=== PATIENT | male | born 1970 | race Caucasian/White ===

== ENCOUNTER 2019-03-16 16:33 | Inpatient (IN) | payer OTHER ==
[~2019-03-16] VITALS: Ht 167.6 cm; Wt 80.0 kg
[2019-03-16 16:43] VITALS: Ht 167.6 cm; Wt 80.0 kg
[2019-03-16 17:31] LABS: BASOPHIL % 0.3 % (0-2); PLATELET COUNT 230 x10^3mcL (130-400); RED CELL DISTRIBUTION WIDTH 12.8 % (11.5-14.5)
[2019-03-16 17:38] LABS: CALCIUM 8.3 mg/dL (8.5-10.1); CARBON DIOXIDE 26.7 mmol/L (21-32); CHLORIDE SERUM 103 mmol/L (98-107); CREATININE SERUM 0.7 mg/dL (0.7-1.3); GFR1 > 60 mL/min; GLUCOSE SERUM 275 mg/dL (74-106); SODIUM SERUM 138 mmol/L (136-145)
[2019-03-16 17:56] LABS: ALBUMIN 3.7 g/dL (3.4-5.0); ALKALINE PHOSPHATASE 87 U/L (46-116); ALT/SGPT 69 U/L (16-63); AST/SGOT 35 U/L (15-37); BILIRUBIN TOTAL 0.5 mg/dL (0.20-1.00); TOTAL PROTEIN, SERUM 7.2 g/dL (6.4-8.2)
[2019-03-16 20:29] LABS: AMPHETAMINE QUAL UR NONE DETECTED (See below)
[2019-03-16 21:27] VITALS: BP 136/72
[2019-03-17 05:36] VITALS: BP 134/76
[2019-03-17 07:20] VITALS: BP 122/70
[2019-03-17 07:55] LABS: BASOPHIL % 0.3 % (0-2); PLATELET COUNT 230 x10^3mcL (130-400); RED CELL DISTRIBUTION WIDTH 12.8 % (11.5-14.5)
[2019-03-17 08:34] LABS: CALCIUM 8.5 mg/dL (8.5-10.1); CARBON DIOXIDE 26.3 mmol/L (21-32); CHLORIDE SERUM 106 mmol/L (98-107); CREATININE SERUM 0.6 mg/dL (0.7-1.3); GFR1 > 60 mL/min; GLUCOSE SERUM 286 mg/dL (74-106); MAGNESIUM 2.4 mg/dL (1.8-2.4); PHOSPHOROUS 2.8 mg/dL (2.5-4.9); POTASSIUM SERUM 4.4 mmol/L (3.5-5.1); SODIUM SERUM 139 mmol/L (136-145)
[2019-03-17 08:46] LABS: T4(THYROXINE) 7.3 ug/dL (4.7-13.3)
[2019-03-17 08:47] LABS: ERYTHROCYTE SED RATE 8 mm/hr (0-15)
[2019-03-17] MEDS ORDERED: GLU500 (10:05)
[2019-03-17] MEDS ORDERED: ITRACONAZOLE100 MG PO (10:05)
[2019-03-17 12:32] VITALS: BP 149/89
[2019-03-17 16:33] VITALS: BP 139/86
[2019-03-17 20:37] VITALS: BP 128/75
[2019-03-17 23:04] VITALS: BP 117/68
[2019-03-18 03:04] VITALS: BP 119/71
[2019-03-18 05:08] LABS: RAPID PLASMA REAGIN Non Reactive (Non Reactive)
[2019-03-18 05:19] LABS: BASOPHIL % 0.2 % (0-2); PLATELET COUNT 221 x10^3mcL (130-400); RED CELL DISTRIBUTION WIDTH 12.8 % (11.5-14.5)
[2019-03-18 07:15] LABS: CARBON DIOXIDE 27.4 mmol/L (21-32); CHLORIDE SERUM 106 mmol/L (98-107); CREATININE SERUM 0.7 mg/dL (0.7-1.3); GFR1 > 60 mL/min; GLUCOSE SERUM 217 mg/dL (74-106); SODIUM SERUM 141 mmol/L (136-145)
[2019-03-18 08:00] VITALS: BP 144/81
[2019-03-18 09:08] LABS: RHEUMATOID ARTHRITIS FACTOR <10.0 IU/mL (0.0-13.9)
[2019-03-18 11:34] VITALS: BP 126/77
[2019-03-18 16:00] VITALS: BP 154/82
[2019-03-18 20:59] VITALS: BP 149/78
[2019-03-19 06:02] VITALS: BP 122/82
[2019-03-19 07:40] LABS: ALBUMIN 3.1 g/dL (3.4-5.0); ALKALINE PHOSPHATASE 86 U/L (46-116); ALT/SGPT 41 U/L (16-63); AST/SGOT 17 U/L (15-37); BILIRUBIN TOTAL 0.6 mg/dL (0.20-1.00); CALCIUM 7.9 mg/dL (8.5-10.1); CARBON DIOXIDE 26.2 mmol/L (21-32); CHLORIDE SERUM 103 mmol/L (98-107); CREATININE SERUM 0.6 mg/dL (0.7-1.3); GFR1 > 60 mL/min; GLUCOSE SERUM 221 mg/dL (74-106); POTASSIUM SERUM 3.9 mmol/L (3.5-5.1); SODIUM SERUM 138 mmol/L (136-145); TOTAL PROTEIN, SERUM 6.4 g/dL (6.4-8.2)
[2019-03-19 08:27] LABS: CHOLESTEROL/HDL RATIO 4.5
[2019-03-19 09:20] VITALS: BP 144/82
[2019-03-19 12:15] VITALS: BP 128/83
[2019-03-19 14:08] VITALS: BP 128/83
== END 2019-03-19 15:24 | disposition home or self-care (01) | DRG 171 ==
LOC: ED 16:33 → DU 18:51 → IC 18:51 → DU 20:25 → IC 03-17 06:12 → DU 03-18 16:15
PROVIDERS: Emergency Medicine; Internal Medicine Cardiovascular Disease; ADMIT Internal Medicine
PROC: 02H63JZ Insertion of Pacemaker Lead into Right Atrium, Percutaneous Approach (ICD-10-PCS; 2019-03-17)
PROC: 02HK3JZ Insertion of Pacemaker Lead into Right Ventricle, Percutaneous Approach (ICD-10-PCS; 2019-03-17)
PROC: 0JH606Z Insertion of Pacemaker, Dual Chamber into Chest Subcutaneous Tissue and Fascia, Open Approach (ICD-10-PCS; principal; 2019-03-17 18:00)
DX: I49.5 Sick sinus syndrome (principal); E11.65 Type 2 diabetes mellitus with hyperglycemia; F17.290 Nicotine dependence, other tobacco product, uncomplicated; I25.10 Atherosclerotic heart disease of native coronary artery without angina pectoris; F07.81 Postconcussional syndrome; W18.39XA Other fall on same level, initial encounter; Z79.4 Long term (current) use of insulin; Y93.89 Activity, other specified; Y92.89 Other specified places as the place of occurrence of the external cause; Y99.8 Other external cause status
CPT/HCPCS: 76001; 82962; 86431; C1785; G0378; J0461; J0690; J1265; J1815; J2001; J2250; J3010; J3490; J7030; J7050; J7120; J8597; Q0092; Q0163; Q9967